=== PATIENT | male | born 1980 | race Caucasian/White ===

== ENCOUNTER → 2016-11-02 | Outpatient (CLI) | payer OTHER ==
[~2016-11-02] MED LIST: KLONOPIN0.5 MG PO; OMEPRAZOLE40 MG PO; ZANTAC300 MG PO
--- NOTE | ~2016-11-02 | CT4 ---
[facility] A Service of [facility] RADIOLOGY TEXT RESULTS PATIENT: MICHAEL SLATER LOCATION: [facility] : 82 UNIT #: [id number] AGE: [address]: Farhana Cain APRN SEX: M ORDER DR: [id number] [facility] [address] [place], [place] [address] [id number] O MR#: [id number] Acc #: [id number] NAME: MICHAEL SLATER. : 1980 SEX: M STUDY DATE/TIME: 11/02/2016 13:41 UNIT: [facility] ROOM: STUDY DESCRIPTION: CT Abd and Pelv Wo Cont Attending Physician: Farhana Cain A.P.R.N. Referring Physician: Farhana Cain A.P.R.N. Ordering Physician: Farhana Cain A.P.R.N. Primary Care Physician: Farhana Cain A.P.R.N. MEDICAL IMAGING REPORT This report is preliminary unless electronic signature is present EXAM CT abdomen and pelvis without contrast, 11/02/2016 13:41 hours HISTORY Right flank pain for 5 days, increased pain with eating. COMPARISON 06/14/2015 TECHNIQUE Helical noncontrasted images were obtained from the lung bases through the pubic symphysis without oral or intravenous contrast. Sagittal and coronal reconstructions were performed. Total exam DLP 652 mGy-cm. This CT exam was performed with one or more of the following radiation dose reduction techniques: automatic exposure control, adjustment of mA and/or kV according to patient size, and iterative reconstruction. FINDINGS The lung bases are clear. There are no effusions. Noncontrasted images through the abdomen demonstrate a normal appearance to the liver. Small cystic lesion with rim calcification in the superior spleen is unchanged and benign. The gallbladder appears to contain dependent sludge but no definite stones or wall thickening. There is no pericholecystic fluid. Pancreas and pancreatic duct are normal. The adrenal glands are normal. There are very small nonobstructing intrarenal stones measuring 2.0-3.0 mm in the lower pole right kidney and 3.0 mm in the mid left kidney. These are similar to the prior exam. There is no dilatation of the renal collecting systems or ureters. No ureteral calculi. The bladder is normal. The stomach contains a small amount of fluid and is poorly distended but appears normal. The small bowel is unremarkable. The terminal ileum is STS. [facility] A Service of [facility] RADIOLOGY TEXT RESULTS PATIENT: MICHAEL SLATER LOCATION: [facility] : 81 UNIT #: [id number] AGE: [address]: Farhana Cain APRN SEX: M ORDER DR: normal. There is dense material within the appendix as was seen on prior study, likely retained contrast material. There is no evidence of appendicitis. There is increased stool throughout the colon which is somewhat distended particularly in the right colon and transverse colon. Findings suggest constipation. Stool is seen through the rectosigmoid colon as well. There is stable underlying scoliosis. There is degenerative disc disease with bilateral pars defects at L5 unchanged. IMPRESSION 1. There are small nonobstructing intrarenal calculi similar to 06/14/2015. No ureteral calculi. 2. The appendix is normal in caliber. There is dense material within the appendix, similar to prior CT, most likely retained contrast material. There is no evidence of appendicitis. 3. There is a increased amount of stool and distension of the colon from the cecum to the rectum consistent with moderate to severe constipation. No colonic wall thickening is seen. STAT * RESULT Dictated by... Cassidy Mariee M.D. THIS IS AN ELECTRONICALLY VERIFIED REPORT Cassidy Mariee M.D. at 11/03/2016 10:40 AM Erlinda TD: 11/02/2016 14:23 JOB #: [id number] MEDICAL IMAGING REPORT Page 1 of 1 COPY
== END | disposition home or self-care (01) ==
LOC: CCAT 13:07
DX: R10.31 Right lower quadrant pain (principal); N20.0 Calculus of kidney; K63.89 Other specified diseases of intestine
CPT/HCPCS: 74176

== ENCOUNTER 2017-02-10 08:20 | Emergency (ER) | payer OTHER | END 2017-02-10 09:02 | disposition home or self-care (01) | LOC: CFTX 08:20 → CED 08:20 → CFTX 08:57 | DX: R21 Rash and other nonspecific skin eruption (principal); G40.909 Epilepsy, unspecified, not intractable, without status epilepticus; F17.210 Nicotine dependence, cigarettes, uncomplicated; Z79.899 Other long term (current) drug therapy | CPT/HCPCS: 99282 ==